=== PATIENT | male | born 1955 | race Hispanic/Latino ===

== ENCOUNTER → 2017-11-14 | Outpatient (CLI) | payer OTHER ==
--- NOTE | 2017-11-14 14:24 | Diagnostic Imaging Report ---
PROCEDURE: Frontal and lateral views of the chest. COMPARISON: None. INDICATIONS: PNEUMONIA FINDINGS: Lines/tubes: None. Lungs: The lungs are well inflated and clear. Minimal left basilar haziness. 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 Mild right heart border and duration. Pleura: There is no pleural effusion or pneumothorax. Heart and mediastinum: The heart and the mediastinum are normal. Bones: No acute bony abnormality. IMPRESSION: 1. Mild right heart border obscuration likely atelectasis. Underlying right middle lobe pneumonia cannot be entirely excluded. 2. Minimal left basilar haziness likely atelectasis. Dictated by: Franco Fatima M.D. on 11/14/2017 at 14:33 Electronically approved by: Franco Fatima M.D. on 11/14/2017 at 14:33
== END ==
LOC: RAD 13:20
PROVIDERS: ATTEND Internal Medicine
DX: J18.9 Pneumonia, unspecified organism (principal)
CPT/HCPCS: 71020

== ENCOUNTER → 2018-03-23 | Outpatient (CLI) | payer OTHER ==
--- NOTE | 2018-03-23 18:51 | Diagnostic Imaging Report ---
PROCEDURE: CT CHEST WITHOUT CONTRAST CT scan of the chest WITHOUT intravenous contrast, using standard protocol. TECHNIQUE: The chest was scanned utilizing a multidetector helical scanner from the apex to the level of the adrenal glands. No IV contrast was administered per physician's request. Coronal and sagittal multiplanar reformations were obtained. COMPARISON: [facility], , CHEST 2 VIEWS, 11/14/2017, 13:41. INDICATIONS: ABNORMAL CHEST X-RAY FINDINGS: Lack of intravenous contrast limits evaluation of parenchymal findings and vascular pathology. Lines/tubes: None. Lungs and pleura: Marked eventration of the right hemidiaphragm. Focal consolidation with air bronchograms in the right middle lobe adjacent to the diaphragmatic border (series 3, image 53, and sagittal image 45), likely representing chronic atelectasis and scarring. Similar changes are noted in the medial aspect of the right lower lobe (series 3, image 54). Tree in bud opacities in the anterior right lower lobe extending along the bronchovascular bundle to the pleural surface, with presence of thickened bronchial wall (for example, series 3, image 50). Linear opacities with associated mild bronchiectasis in the medial right middle lobe (series 3, image 57-59), consistent with scarring. Focal grouping of 3-4 mm subpleural nodules in the lateral aspect of the left lower lobe (series 3, image 80). The left lung is otherwise clear. No other areas of consolidation or other opacities. Airways are clear, without endobronchial lesions. Heart and mediastinum: The thyroid gland is normal. Heart size is normal. No pericardial effusion. Atherosclerotic calcification and aortic valves in coronary arteries and thoracic aortic arch. Aorta is non-aneurysmal. The main pulmonary artery is borderline enlarged, measuring 3.1 cm. Lymph nodes: No mediastinal, hilar, or axillary adenopathy. Partly calcified right lower paratracheal and left hilar lymph nodes (series 2, images 41, 38 and 57). Abdomen: Limited views of the upper abdomen show no abnormality within the visualized liver, spleen, pancreas. Bilateral renal atrophy. Mostly exophytic 1.9 x 1.8 cm fluid density simple cyst in the superior pole of the right kidney (series 2 image 131). 0.9 x 0.9 cm fluid density simple cyst in the superior pole of the left kidney (series 2, image 131). Colonic interposition. The adrenal glands are normal. Bones: No aggressive lytic lesions. Soft tissues are grossly unremarkable. IMPRESSION: 1. Marked eventration of the right hemidiaphragm, which results in focal consolidations in the right middle lobe and medial aspect of the right lower lobe consistent with chronic atelectasis and scarring. 2. Tree in bud opacities in the anterior right lower lobe, extending along the bronchovascular bundle to the pleural surface, consistent with endobronchial spread of infection/developing pneumonia. 3. Focal groups 3-4 mm subpleural nodules in the lateral left lower lobe, which may represent evolving inflammatory or infectious nodules. 4. Bilateral renal atrophy. 5. 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 Igor Trujillo M.D. Dictated by: Igor Trujillo M.D. on 03/23/2018 at 18:52 Electronically approved by: Igor Trujillo M.D. on 03/23/2018 at 18:52
== END ==
LOC: CT 09:40
PROVIDERS: ATTEND Internal Medicine
DX: R91.8 Other nonspecific abnormal finding of lung field (principal)
CPT/HCPCS: 71250

== ENCOUNTER → 2019-05-14 | Outpatient (CLI) | payer MEDICARE, OTHER ==
--- NOTE | 2019-05-14 10:58 | Diagnostic Imaging Report ---
EXAM: CT Chest WITHOUT intravenous contrast 05/14/2019 9:26 AM INDICATION: Follow-up of prior abnormal CT findings. COMPARISON: Chest CT of 03/23/2018 TECHNIQUE: Chest was scanned utilizing a multidetector helical scanner from the lung apex through the level of the adrenal glands without administration of IV contrast. Coronal and sagittal reformations were obtained. Routine protocol was performed. IV CONTRAST: None. RADIATION DOSE: Total DLP: 550.13 mGy*cm. Dose modulation, iterative reconstruction, and/or weight based adjustment of the mA/kV was utilized to reduce the radiation dose to as low as reasonably achievable. COMPLICATIONS: None FINDINGS: LINES/ TUBES: None. LUNGS AND AIRWAYS: The central airways are patent. Again seen are chronic architectural changes of the right lower lobe with decreased expansion, bronchial wall thickening, and scattered reticulonodular opacities, somewhat which are calcified. The previously seen mild tree-in-bud opacities at the peripheral left lower lobe also appear unchanged. No new focal consolidation. No new suspicious nodules. PLEURA: No pleural effusion or pneumothorax. Right diaphragmatic eventration with elevation of the right hemidiaphragm. HEART AND MEDIASTINUM: The thyroid gland is normal. No mediastinal, hilar or axillary lymphadenopathy. The heart is normal in size.. There is no pericardial effusion. Atherosclerotic calcifications involve the coronary arteries and thoracic aorta. UPPER ABDOMEN: Limited noncontrast images of the abdomen demonstrate no abnormality of the partially visualized liver, gallbladder, spleen, pancreas, or adrenal glands. Bilateral atrophic [place] kidneys. Right renal cyst measures up to 2.3 cm. Left renal cyst measuring 9 mm. Atherosclerotic calcifications involve the abdominal aorta. 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 BONES: No acute fracture or dislocation. Mild degenerative changes of the visualized spine. SOFT TISSUES: Unremarkable. IMPRESSION: Unchanged chronic scarring and underexpansion of the right lower lobe, likely related to prior infectious/granulomatous process. Mild tree-in-bud opacities in the peripheral left lower lobe also appear unchanged. No new focal consolidation. Atrophic [place] kidneys. Signed by: Sebas Myers MD on 05/14/2019 10:54 AM
== END ==
LOC: CT 09:20
PROVIDERS: ATTEND Internal Medicine Pulmonary Disease
DX: J98.4 Other disorders of lung (principal)
CPT/HCPCS: 71250

== ENCOUNTER → 2020-10-16 | Outpatient (CLI) | payer MEDICARE, OTHER | LOC: RAD 14:19 | PROVIDERS: ATTEND Urology | DX: N20.0 Calculus of kidney (principal) | CPT/HCPCS: 74018 ==

== ENCOUNTER → 2020-12-12 | Day surgery (SDC) | payer MEDICARE, OTHER ==
[2020-12-10 14:31] LABS: BASOPHILS # (AUTO) 0.1 (0.0-0.1); BASOPHILS % 0.8 % (0.0-1.0); EOSINOPHILS # (AUTO) 0.1 (0.0-0.4); EOSINOPHILS % 1.1 % (0.0-6.0); HEMATOCRIT 42.2 % (38.2-49.6); HEMOGLOBIN 14.1 g/dL (14.0-18.0); LYMPHOCYTES # (AUTO) 1.5 (1.0-3.2); MEAN CORPUSCULAR HEMOGLOBIN 30.9 pg (28-32); MEAN CORPUSCULAR HGB CONC 33.4 g/dL (31-35); MEAN CORPUSCULAR VOLUME 92.5 fL (81-99); MONOCYTES # (AUTO) 0.9 (0.2-0.8); MONOCYTES % 10.5 % (4.4-11.3); NEUTROPHILS % 70.1 % (38.7-80.0); PLATELET COUNT 211 x10e3/uL (140-360); RED BLOOD COUNT 4.56 x10e6/uL (4.3-5.7); RED CELL DISTRIBUTION WIDTH 12.9 % (11.7-14.4)
[2020-12-10 14:59] LABS: ALBUMIN 3.7 g/dL (3.5-5.0); ALBUMIN/GLOBULIN RATIO 1.4 (0.8-2.0); ANION GAP 13.1 mmol/L (8-16); CALCIUM 9.2 mg/dL (8.4-10.2); CREATININE, SERUM 2.2 mg/dL (0.72-1.25); POTASSIUM 4.1 mmol/L (3.5-5.1)
[~2020-12-12] MED LIST: B&O 60MG R/S 60 MG SUPP PR ONE; CEFTRIAXONE SOD 1 GM VIAL ONE; CLONIDINE HCL0.2 MG PO; CRESTOR10 MG PO; CYCLOSPORINE25 MG PO; FAMOTIDINE20 MG PO; HUMALOG100 UNIT/3 SC; HUMULIN R100 UNIT/2 INJ; IOPAMIDOL 300MG/ML 50ML INFUS..BTL IV ONE; LANTUS100 UNIT/1 SQ; MYCOPHENOLIC A180 MG PO; NIFEDIPINE ER30 M1 PO; PREDNISONE5 MG PO; SODIUM CHLORIDE 0.9% 50ML 50 ML ONE; VIT D3 PO
[2020-12-12 12:35] VITALS: BP 130/73
== END | disposition home or self-care (01) ==
LOC: OR 07:59
PROVIDERS: ATTEND Urology
DX: N20.1 Calculus of ureter (principal); N20.0 Calculus of kidney; E11.22 Type 2 diabetes mellitus with diabetic chronic kidney disease; I13.0 Hypertensive heart and chronic kidney disease with heart failure and stage 1 through stage 4 chronic kidney disease, or unspecified chronic kidney disease; N18.9 Chronic kidney disease, unspecified; I50.9 Heart failure, unspecified; N35.919 Unspecified urethral stricture, male, unspecified site; N40.0 Benign prostatic hyperplasia without lower urinary tract symptoms; N13.8 Other obstructive and reflux uropathy; N32.89 Other specified disorders of bladder; N47.1 Phimosis; Z94.0 Kidney transplant status; B19.10 Unspecified viral hepatitis B without hepatic coma; K21.9 Gastro-esophageal reflux disease without esophagitis; K27.9 Peptic ulcer, site unspecified, unspecified as acute or chronic, without hemorrhage or perforation; M47.9 Spondylosis, unspecified; Z88.1 Allergy status to other antibiotic agents; Z01.810 Encounter for preprocedural cardiovascular examination; Z01.812 Encounter for preprocedural laboratory examination; Z01.818 Encounter for other preprocedural examination; Z20.822 Contact with and (suspected) exposure to COVID-19; Z79.4 Long term (current) use of insulin; Z87.891 Personal history of nicotine dependence
CPT/HCPCS: 36415 ×2; 52330; 52332; 74018; 74420; 80053; 82948; 84550; 85025; 88300; 93005; C1758; C1769; C2617; J0696; Q9967; U0002

== ENCOUNTER → 2021-01-26 | Day surgery (SDC) | payer MEDICARE, OTHER ==
[2021-01-23 10:30] LABS: BASOPHILS % 0.6 % (0.0-1.0); EOSINOPHILS # (AUTO) 0.1 (0.0-0.4); EOSINOPHILS % 1.1 % (0.0-6.0); HEMATOCRIT 42.5 % (38.2-49.6); LYMPHOCYTES # (AUTO) 1.4 (1.0-3.2); LYMPHOCYTES % 22.2 % (18.0-39.1); MEAN CORPUSCULAR HEMOGLOBIN 30.7 pg (28-32); MEAN CORPUSCULAR HGB CONC 32.9 g/dL (31-35); MEAN CORPUSCULAR VOLUME 93.2 fL (81-99); MONOCYTES # (AUTO) 0.8 (0.2-0.8); NEUTROPHILS # (AUTO) 3.9 (2.1-6.9); NEUTROPHILS % 62.6 % (38.7-80.0); PLATELET COUNT 186 x10e3/uL (140-360); RED BLOOD COUNT 4.56 x10e6/uL (4.3-5.7); RED CELL DISTRIBUTION WIDTH 12.7 % (11.7-14.4)
[2021-01-23 10:53] LABS: ANION GAP 15.9 mmol/L (8-16); CREATININE, SERUM 2.25 mg/dL (0.72-1.25); POTASSIUM 3.9 mmol/L (3.5-5.1)
[~2021-01-26] MED LIST changes: +BUPIVACAINE 0.25% 30ML SDV ONE; +CEFAZOLIN SOD 1 GM/NS 50ML 50 ML IV ONE; -CEFTRIAXONE SOD 1 GM VIAL ONE; +CEPHALEXIN500 MG PO; +EPHEDRINE SULFATE INJ 50 MG/ML VIAL ONE; +FENTANYL CITRATE/PF 100MCG/2 ML INJ ONE; +GENTAMICIN 80MG/NS 100 ML 100 ML IV ONE; +LIDOCAINE HCL 2% LOCAL INJ 5 ML SDV VIAL INJ ONE; +MEPERIDINE HCL INJ 25 MG/ML VIAL ONE; +MIDAZOLAM HCL 2 MG/2 ML VIAL ONE; +NEOSTIGMINE 1 MG/ML 10ML VIAL ONE; +ONDANSETRON HCL INJ 2MG/ML 2ML 2 MG/ML VIAL ONE; +PROPOFOL IV EMULSION 10 MG/ML 20 ML VIAL ONE; +SEVOFLURANE INHAL SOLN 250 ML PEN BTL ONE; -SODIUM CHLORIDE 0.9% 50ML 50 ML ONE
[2021-01-26 12:02] VITALS: BP 157/66
== END | disposition home or self-care (01) ==
LOC: OR 07:34
PROVIDERS: ATTEND Urology
DX: N47.1 Phimosis (principal); N20.0 Calculus of kidney; N47.7 Other inflammatory diseases of prepuce; Z46.6 Encounter for fitting and adjustment of urinary device; N35.919 Unspecified urethral stricture, male, unspecified site; E11.22 Type 2 diabetes mellitus with diabetic chronic kidney disease; I12.9 Hypertensive chronic kidney disease with stage 1 through stage 4 chronic kidney disease, or unspecified chronic kidney disease; N18.9 Chronic kidney disease, unspecified; N40.1 Benign prostatic hyperplasia with lower urinary tract symptoms; N13.8 Other obstructive and reflux uropathy; R35.1 Nocturia; R80.9 Proteinuria, unspecified; E66.9 Obesity, unspecified; N28.1 Cyst of kidney, acquired; R81 Glycosuria; N28.89 Other specified disorders of kidney and ureter; B19.10 Unspecified viral hepatitis B without hepatic coma; R00.1 Bradycardia, unspecified; Z88.1 Allergy status to other antibiotic agents; Z01.812 Encounter for preprocedural laboratory examination; Z01.818 Encounter for other preprocedural examination; Z20.822 Contact with and (suspected) exposure to COVID-19; Z98.890 Other specified postprocedural states; Z79.4 Long term (current) use of insulin; Z84.1 Family history of disorders of kidney and ureter
CPT/HCPCS: 36415 ×2; 52352; 54161; 74018; 74420; 80048; 82948; 85025; 88300; 88305; C1769; J0690; J1580; J2001; J2175; J2250; J2405; J2704; J2710; J3010; Q9967; U0002; 88304

== ENCOUNTER → 2021-02-27 | Outpatient (CLI) | payer MEDICARE, OTHER ==
[~2021-02-27] MED LIST changes: -B&O 60MG R/S 60 MG SUPP PR ONE; -BUPIVACAINE 0.25% 30ML SDV ONE; -CEFAZOLIN SOD 1 GM/NS 50ML 50 ML IV ONE; -EPHEDRINE SULFATE INJ 50 MG/ML VIAL ONE; -FENTANYL CITRATE/PF 100MCG/2 ML INJ ONE; -GENTAMICIN 80MG/NS 100 ML 100 ML IV ONE; -IOPAMIDOL 300MG/ML 50ML INFUS..BTL IV ONE; -LIDOCAINE HCL 2% LOCAL INJ 5 ML SDV VIAL INJ ONE; -MEPERIDINE HCL INJ 25 MG/ML VIAL ONE; -MIDAZOLAM HCL 2 MG/2 ML VIAL ONE; -NEOSTIGMINE 1 MG/ML 10ML VIAL ONE; -ONDANSETRON HCL INJ 2MG/ML 2ML 2 MG/ML VIAL ONE; -PROPOFOL IV EMULSION 10 MG/ML 20 ML VIAL ONE; -SEVOFLURANE INHAL SOLN 250 ML PEN BTL ONE
== END ==
LOC: RAD 12:32
PROVIDERS: ATTEND Internal Medicine
DX: J40 Bronchitis, not specified as acute or chronic (principal)
CPT/HCPCS: 71046

== ENCOUNTER 2021-11-05 13:54 | Inpatient (IN) | payer MEDICARE, OTHER ==
[~2021-11-05] VITALS: Ht 162.6 cm; Wt 78.6 kg
[2021-11-05] MEDS ORDERED: SODIUM CHLORIDE 0.9% 1000ML 1,000 ML IV SCH (14:15)
[2021-11-05] MEDS ORDERED: ACETAMINOPHEN 325 MG TAB PO ONE (14:15)
[2021-11-05 15:04] LABS: BASOPHILS % 0.1 % (0.0-1.0); HEMOGLOBIN 14.4 g/dL (14.0-18.0); LYMPHOCYTES # (AUTO) 0.6 (1.0-3.2); LYMPHOCYTES % 5.8 % (18.0-39.1); MEAN CORPUSCULAR HEMOGLOBIN 30.4 pg (28-32); MEAN CORPUSCULAR HGB CONC 34.3 g/dL (31-35); MEAN CORPUSCULAR VOLUME 88.6 fL (81-99); MONOCYTES % 9.7 % (4.4-11.3); NEUTROPHILS # (AUTO) 8.4 (2.1-6.9); PLATELET COUNT 253 x10e3/uL (140-360); RED BLOOD COUNT 4.74 x10e6/uL (4.3-5.7); RED CELL DISTRIBUTION WIDTH 12.3 % (11.7-14.4)
[2021-11-05 15:30] LABS: ALBUMIN 2.8 g/dL (3.5-5.0); ALBUMIN/GLOBULIN RATIO 0.7 (0.8-2.0); ANION GAP 21.6 mmol/L (8-16); CALCIUM 9.5 mg/dL (8.4-10.2); CREATININE, SERUM 4.12 mg/dL (0.72-1.25); POTASSIUM 3.6 mmol/L (3.5-5.1)
[2021-11-05 16:05] LABS: COLOR,URINE STRAW (YELLOW)
[2021-11-05 16:06] LABS: CLARITY,URINE SL CLOUDY (CLEAR); KETONES,URINE NEGATIVE (NEGATIVE); LEUKOCYTE ESTERASE ,URINE NEGATIVE (NEGATIVE); NITRITE,URINE NEGATIVE (NEGATIVE); PROTEIN,URINE DIPSTICK >=300 (NEGATIVE); URINE UROBILINOGEN 0.2 mg/dL (0.2 - 1)
[2021-11-05 16:16] LABS: BACTERIA,URINE MODERATE /HPF
[2021-11-05 16:17] LABS: AMORPHOUS SEDIMENT,URINE MANY (FEW); EPITHELIAL CELLS,URINE FEW /LPF
[2021-11-05] MEDS ORDERED: FLOMAX0.4 MG PO (16:18)
[2021-11-05] MEDS ORDERED: ZYRTEC10 M3 PO (16:18)
[2021-11-05] MEDS ORDERED: MYCOPHENOLIC A180 MG PO (16:18)
[2021-11-05] MEDS ORDERED: BUMETANIDE0.5 MG PO (16:18)
[2021-11-05] MEDS ORDERED: PEPCID20 MG PO (16:18)
[2021-11-05] MEDS ORDERED: FINASTERIDE5 MG PO (16:18)
[2021-11-05] MEDS ORDERED: SODIUM BICARBO650 MG PO (16:18)
[2021-11-05] MEDS: SODIUM CHLORIDE 0.9% 1000ML 1,000 ML IV SCH (16:25)
[2021-11-05] MEDS ORDERED: LANTUS 3ML100 UNITS/ SC (16:28)
[2021-11-05] MEDS ORDERED: HUMALOG100 UNIT/1 SC (16:28)
[2021-11-05 20:00] VITALS: BP 148/68
[2021-11-05 22:54] VITALS: BP 148/68
[2021-11-06] VITALS (7 sets, daily range): BP systolic 146–171; BP diastolic 71–81
[2021-11-06] MEDS: SODIUM CHLORIDE 0.9% 1000ML 1,000 ML IV SCH ×3 (00:28→16:29)
[2021-11-06] MEDS: CYCLOSPORINE 25 MG CAP PO SCH ×2 (01:36→16:29)
[2021-11-06 05:09] LABS: BASOPHILS % 0.1 % (0.0-1.0); HEMATOCRIT 37.8 % (38.2-49.6); HEMOGLOBIN 13.1 g/dL (14.0-18.0); LYMPHOCYTES # (AUTO) 0.4 (1.0-3.2); LYMPHOCYTES % 4.9 % (18.0-39.1); MEAN CORPUSCULAR HEMOGLOBIN 30.1 pg (28-32); MEAN CORPUSCULAR HGB CONC 34.7 g/dL (31-35); MEAN CORPUSCULAR VOLUME 86.9 fL (81-99); MONOCYTES # (AUTO) 0.7 (0.2-0.8); MONOCYTES % 7.7 % (4.4-11.3); NEUTROPHILS # (AUTO) 7.3 (2.1-6.9); NEUTROPHILS % 86.9 % (38.7-80.0); PLATELET COUNT 236 x10e3/uL (140-360); RED BLOOD COUNT 4.35 x10e6/uL (4.3-5.7); RED CELL DISTRIBUTION WIDTH 12.1 % (11.7-14.4)
[2021-11-06 05:38] LABS: ANION GAP 18.1 mmol/L (8-16); CALCIUM 8.7 mg/dL (8.4-10.2); CREATININE, SERUM 3.81 mg/dL (0.72-1.25); POTASSIUM 4.1 mmol/L (3.5-5.1)
[2021-11-06] MEDS: NON-FORMULARY MEDICATION (Mycophenolate Sodium (Mycophenolic Acid) 180 MG) PO SCH ×2 (09:00→16:29)
[2021-11-06] MEDS ORDERED: BUMETANIDE 1 MG TAB PO SCH (09:00)
[2021-11-06] MEDS ORDERED: PREDNISONE 5 MG TAB PO SCH (09:00)
[2021-11-06] MEDS: SIMVASTATIN 20 MG TAB PO SCH (09:17)
[2021-11-06] MEDS: FAMOTIDINE 20 MG TAB PO SCH (09:17)
[2021-11-06] MEDS: SODIUM BICARBONATE 650 MG TAB PO SCH ×2 (09:17→16:30)
[2021-11-06] MEDS: NIFEDIPINE CR 30 MG TAB PO SCH ×2 (09:17→16:30)
[2021-11-06] MEDS: FINASTERIDE 5 MG TAB PO SCH (09:17)
[2021-11-06] MEDS: LORATADINE 10 MG TAB PO SCH (09:17)
[2021-11-06] MEDS: INSULIN GLARGINE 100 UNITS/ML VIAL SC SCH ×2 (09:18→21:45)
[2021-11-06] MEDS: CLONIDINE HCL 0.3 MG TAB PO SCH ×3 (09:18→22:02)
[2021-11-06] MEDS ORDERED: CEFTRIAXONE 1 GM in SODIUM CHLORIDE 0.9% 50ML 50 ML IV SCH (09:30)
[2021-11-06] MEDS ORDERED: CEFTRIAXONE 1 GM VIAL ONE (09:43)
[2021-11-06] MEDS: DEXAMETHASONE SOD PHOS 10 MG/1 ML VIAL IV SCH (16:29)
[2021-11-06] MEDS ORDERED: ENOXAPARIN SOD INJ 40 MG/0.4 ML SYR SC SCH (17:00)
[2021-11-06] MEDS: PIPERACILLIN/TAZOBACTAM 2.25 GM in SODIUM CHLORIDE 0.9% 50ML 50 ML IV SCH (21:45)
[2021-11-06] MEDS: TAMSULOSIN HCL 0.4 MG CAP PO SCH (21:45)
[2021-11-06] MEDS: ALBUTEROL SULFATE HFA 8GM INHALATION AEROSOL INH SCH (23:44)
[2021-11-07] VITALS (18 sets, daily range): BP systolic 103–168; BP diastolic 65–87
[2021-11-07] MEDS: ALBUTEROL SULFATE HFA 8GM INHALATION AEROSOL INH SCH ×6 (03:05→22:00)
[2021-11-07] MEDS: SODIUM CHLORIDE 0.9% 1000ML 1,000 ML IV SCH (06:09)
[2021-11-07 06:45] LABS: BASOPHILS % 0.1 % (0.0-1.0); HEMATOCRIT 38.7 % (38.2-49.6); HEMOGLOBIN 12.9 g/dL (14.0-18.0); LYMPHOCYTES # (AUTO) 0.2 (1.0-3.2); LYMPHOCYTES % 2.2 % (18.0-39.1); MEAN CORPUSCULAR HEMOGLOBIN 30.1 pg (28-32); MEAN CORPUSCULAR HGB CONC 33.3 g/dL (31-35); MEAN CORPUSCULAR VOLUME 90.2 fL (81-99); MONOCYTES # (AUTO) 0.3 (0.2-0.8); MONOCYTES % 3.8 % (4.4-11.3); NEUTROPHILS # (AUTO) 8.3 (2.1-6.9); NEUTROPHILS % 93.5 % (38.7-80.0); PLATELET COUNT 296 x10e3/uL (140-360); RED BLOOD COUNT 4.29 x10e6/uL (4.3-5.7); RED CELL DISTRIBUTION WIDTH 12.6 % (11.7-14.4)
[2021-11-07 07:07] LABS: ALBUMIN 2.5 g/dL (3.5-5.0); ALBUMIN/GLOBULIN RATIO 0.6 (0.8-2.0); ANION GAP 22.4 mmol/L (8-16); CALCIUM 9.7 mg/dL (8.4-10.2); CREATININE, SERUM 4.46 mg/dL (0.72-1.25); POTASSIUM 4.4 mmol/L (3.5-5.1)
[2021-11-07] MEDS: NON-FORMULARY MEDICATION (Mycophenolate Sodium (Mycophenolic Acid) 180 MG) PO SCH ×2 (07:42→16:16)
[2021-11-07] MEDS: FAMOTIDINE 20 MG TAB PO SCH (08:06)
[2021-11-07] MEDS: FINASTERIDE 5 MG TAB PO SCH (08:06)
[2021-11-07] MEDS: CYCLOSPORINE 25 MG CAP PO SCH ×2 (08:06→16:11)
[2021-11-07] MEDS: PIPERACILLIN/TAZOBACTAM 2.25 GM in SODIUM CHLORIDE 0.9% 50ML 50 ML IV SCH ×2 (08:06→22:06)
[2021-11-07] MEDS: NIFEDIPINE CR 30 MG TAB PO SCH ×2 (08:06→16:11)
[2021-11-07] MEDS: CLONIDINE HCL 0.3 MG TAB PO SCH ×3 (08:06→22:06)
[2021-11-07] MEDS: SIMVASTATIN 20 MG TAB PO SCH (08:06)
[2021-11-07] MEDS: DEXAMETHASONE SOD PHOS 10 MG/1 ML VIAL IV SCH (08:06)
[2021-11-07] MEDS: SODIUM BICARBONATE 650 MG TAB PO SCH (08:06)
[2021-11-07] MEDS: LORATADINE 10 MG TAB PO SCH (08:06)
[2021-11-07] MEDS: INSULIN GLARGINE 100 UNITS/ML VIAL SC SCH (08:08)
[2021-11-07] MEDS ORDERED: DEXTROSE 50% SYRINGE 50 ML IV PRN (12:15)
[2021-11-07] MEDS ORDERED: INSULIN REGULAR, HUMAN 3ML VL 100 UNIT in SODIUM CHLORIDE 0.9% 100 ML 100 ML IV SCH ×2 (12:15)
[2021-11-07] MEDS ORDERED: INSULIN REGULAR, HUMAN 100 UNIT/1 ML IV NR (12:15)
[2021-11-07] MEDS: SODIUM BICARBONATE 8.4% 150 ML in DEXTROSE 5% 1,000 ML IV SCH (13:43)
[2021-11-07] MEDS: LINEZOLID 600 MG/D5W 300ML 300 ML IV SCH ×2 (14:15→23:57)
[2021-11-07] MEDS: ATOVAQUONE 750 MG/5 ML SUSP PO SCH (16:11)
[2021-11-07] MEDS ORDERED: MANNITOL 25% 12.5GM/50 ML VIAL IV PRN (17:30)
[2021-11-07] MEDS ORDERED: SODIUM CHLORIDE 0.9% 1000ML 2,000 ML IV PRN (17:30)
[2021-11-07] MEDS ORDERED: SODIUM CHLORIDE 0.9% 250ML 500 ML IV PRN (17:30)
[2021-11-07] MEDS ORDERED: HEPARIN SOD (PORCINE) 1000 UNIT/ML SDV IV PRN (17:30)
[2021-11-07] MEDS: TAMSULOSIN HCL 0.4 MG CAP PO SCH (22:06)
[2021-11-08] VITALS (23 sets, daily range): BP systolic 111–149; BP diastolic 65–82
[2021-11-08] MEDS: ALBUTEROL SULFATE HFA 8GM INHALATION AEROSOL INH SCH ×6 (02:02→22:05)
[2021-11-08] MEDS: SODIUM BICARBONATE 8.4% 150 ML in DEXTROSE 5% 1,000 ML IV SCH (03:10)
[2021-11-08 06:25] LABS: BASOPHILS % 0.1 % (0.0-1.0); HEMATOCRIT 31.9 % (38.2-49.6); HEMOGLOBIN 11.1 g/dL (14.0-18.0); LYMPHOCYTES # (AUTO) 0.1 (1.0-3.2); LYMPHOCYTES % 1.2 % (18.0-39.1); MEAN CORPUSCULAR HEMOGLOBIN 30.2 pg (28-32); MEAN CORPUSCULAR HGB CONC 34.8 g/dL (31-35); MEAN CORPUSCULAR VOLUME 86.9 fL (81-99); MONOCYTES # (AUTO) 0.8 (0.2-0.8); MONOCYTES % 7.3 % (4.4-11.3); NEUTROPHILS # (AUTO) 10.2 (2.1-6.9); NEUTROPHILS % 90.8 % (38.7-80.0); PLATELET COUNT 204 x10e3/uL (140-360); RED BLOOD COUNT 3.67 x10e6/uL (4.3-5.7); RED CELL DISTRIBUTION WIDTH 12.4 % (11.7-14.4)
[2021-11-08 06:50] LABS: ALBUMIN 2.2 g/dL (3.5-5.0); ALBUMIN/GLOBULIN RATIO 0.6 (0.8-2.0); ANION GAP 18.8 mmol/L (8-16); CREATININE, SERUM 4.23 mg/dL (0.72-1.25); POTASSIUM 3.8 mmol/L (3.5-5.1)
[2021-11-08] MEDS: CLONIDINE HCL 0.3 MG TAB PO SCH ×3 (08:26→21:15)
[2021-11-08] MEDS: PIPERACILLIN/TAZOBACTAM 2.25 GM in SODIUM CHLORIDE 0.9% 50ML 50 ML IV SCH ×2 (08:26→21:15)
[2021-11-08] MEDS: DEXAMETHASONE SOD PHOS 10 MG/1 ML VIAL IV SCH (08:26)
[2021-11-08] MEDS: CYCLOSPORINE 25 MG CAP PO SCH ×2 (08:27→17:30)
[2021-11-08] MEDS: FINASTERIDE 5 MG TAB PO SCH (08:29)
[2021-11-08] MEDS: SIMVASTATIN 20 MG TAB PO SCH (08:29)
[2021-11-08] MEDS: NIFEDIPINE CR 30 MG TAB PO SCH ×2 (08:29→17:30)
[2021-11-08] MEDS: FAMOTIDINE 20 MG TAB PO SCH (08:29)
[2021-11-08] MEDS: NON-FORMULARY MEDICATION (Mycophenolate Sodium (Mycophenolic Acid) 180 MG) PO SCH ×3 (08:30→17:27)
[2021-11-08] MEDS: LINEZOLID 600 MG/D5W 300ML 300 ML IV SCH (11:15)
[2021-11-08] MEDS: ATOVAQUONE 750 MG/5 ML SUSP PO SCH (11:28)
[2021-11-08] MEDS: GUAIFENESIN/CODEINE 5 ML LIQD PO PRN ×2 (16:00→22:13)
[2021-11-08] MEDS: ENOXAPARIN 30 MG/0.3 ML SYR SC SCH (17:30)
[2021-11-08] MEDS: SODIUM BICARBONATE 650 MG TAB PO SCH (17:30)
[2021-11-08] MEDS: TAMSULOSIN HCL 0.4 MG CAP PO SCH (21:15)
[2021-11-09] VITALS (26 sets, daily range): BP systolic 122–167; BP diastolic 67–85
[2021-11-09] MEDS: LINEZOLID 600 MG/D5W 300ML 300 ML IV SCH ×2 (00:07→11:17)
[2021-11-09] MEDS: ALBUTEROL SULFATE HFA 8GM INHALATION AEROSOL INH SCH ×6 (02:40→22:00)
[2021-11-09 06:17] LABS: BASOPHILS % 0.1 % (0.0-1.0); HEMATOCRIT 33.7 % (38.2-49.6); HEMOGLOBIN 11.2 g/dL (14.0-18.0); LYMPHOCYTES # (AUTO) 0.3 (1.0-3.2); LYMPHOCYTES % 2.1 % (18.0-39.1); MEAN CORPUSCULAR HEMOGLOBIN 29.9 pg (28-32); MEAN CORPUSCULAR HGB CONC 33.2 g/dL (31-35); MEAN CORPUSCULAR VOLUME 89.9 fL (81-99); MONOCYTES # (AUTO) 0.8 (0.2-0.8); MONOCYTES % 6.3 % (4.4-11.3); NEUTROPHILS # (AUTO) 10.9 (2.1-6.9); NEUTROPHILS % 90.7 % (38.7-80.0); PLATELET COUNT 189 x10e3/uL (140-360); RED BLOOD COUNT 3.75 x10e6/uL (4.3-5.7); RED CELL DISTRIBUTION WIDTH 12.7 % (11.7-14.4)
[2021-11-09 07:02] LABS: ALBUMIN 2.1 g/dL (3.5-5.0); ALBUMIN/GLOBULIN RATIO 0.6 (0.8-2.0); ANION GAP 20.1 mmol/L (8-16); CREATININE, SERUM 5.15 mg/dL (0.72-1.25); POTASSIUM 4.1 mmol/L (3.5-5.1)
[2021-11-09] MEDS: DEXAMETHASONE SOD PHOS 10 MG/1 ML VIAL IV SCH (08:25)
[2021-11-09] MEDS: FINASTERIDE 5 MG TAB PO SCH (08:26)
[2021-11-09] MEDS: NON-FORMULARY MEDICATION (Mycophenolate Sodium (Mycophenolic Acid) 180 MG) PO SCH ×2 (08:26→16:24)
[2021-11-09] MEDS: FAMOTIDINE 20 MG TAB PO SCH (08:26)
[2021-11-09] MEDS: NIFEDIPINE CR 30 MG TAB PO SCH ×2 (08:26→16:24)
[2021-11-09] MEDS: CYCLOSPORINE 25 MG CAP PO SCH ×2 (08:26→16:24)
[2021-11-09] MEDS: CLONIDINE HCL 0.3 MG TAB PO SCH ×3 (08:26→20:15)
[2021-11-09] MEDS: PIPERACILLIN/TAZOBACTAM 2.25 GM in SODIUM CHLORIDE 0.9% 50ML 50 ML IV SCH ×2 (08:26→20:15)
[2021-11-09] MEDS: SODIUM BICARBONATE 650 MG TAB PO SCH ×2 (08:26→16:24)
[2021-11-09] MEDS: SIMVASTATIN 20 MG TAB PO SCH (08:26)
[2021-11-09] MEDS: ATOVAQUONE 750 MG/5 ML SUSP PO SCH (08:30)
[2021-11-09] MEDS: GUAIFENESIN/CODEINE 5 ML LIQD PO PRN ×2 (08:30→20:15)
[2021-11-09] MEDS ORDERED: DEXTROSE 50% SYRINGE 50 ML IV PRN (10:30)
[2021-11-09] MEDS: INSULIN LISPRO 100 UNIT/1 ML 3ML VIAL SQ SCH ×3 (11:16→21:49)
[2021-11-09] MEDS: ENOXAPARIN 30 MG/0.3 ML SYR SC SCH (16:24)
[2021-11-09] MEDS: TAMSULOSIN HCL 0.4 MG CAP PO SCH (20:15)
[2021-11-10] VITALS (18 sets, daily range): BP systolic 100–168; BP diastolic 64–85
[2021-11-10] MEDS: LINEZOLID 600 MG/D5W 300ML 300 ML IV SCH ×2 (00:13→13:01)
[2021-11-10] MEDS: ALBUTEROL SULFATE HFA 8GM INHALATION AEROSOL INH SCH ×6 (02:06→22:00)
[2021-11-10] MEDS: GUAIFENESIN/CODEINE 5 ML LIQD PO PRN ×2 (04:25→13:01)
[2021-11-10 05:15] LABS: HEMATOCRIT 35.2 % (38.2-49.6); HEMOGLOBIN 11.8 g/dL (14.0-18.0); MEAN CORPUSCULAR HEMOGLOBIN 30.5 pg (28-32); MEAN CORPUSCULAR HGB CONC 33.5 g/dL (31-35); PLATELET COUNT 234 x10e3/uL (140-360); RED BLOOD COUNT 3.87 x10e6/uL (4.3-5.7); RED CELL DISTRIBUTION WIDTH 12.8 % (11.7-14.4)
[2021-11-10 05:33] LABS: ALBUMIN/GLOBULIN RATIO 0.5 (0.8-2.0); ANION GAP 18.5 mmol/L (8-16); CALCIUM 8.9 mg/dL (8.4-10.2); CREATININE, SERUM 4.95 mg/dL (0.72-1.25); POTASSIUM 4.5 mmol/L (3.5-5.1)
[2021-11-10] MEDS ORDERED: DEXMEDETOMIDINE 400MCG/NS100ML 100 ML IV ONE (07:20)
[2021-11-10] MEDS: INSULIN LISPRO 100 UNIT/1 ML 3ML VIAL SQ SCH ×4 (07:30→21:00)
[2021-11-10] MEDS: DEXAMETHASONE SOD PHOS 10 MG/1 ML VIAL IV SCH (09:39)
[2021-11-10] MEDS: PIPERACILLIN/TAZOBACTAM 2.25 GM in SODIUM CHLORIDE 0.9% 50ML 50 ML IV SCH ×2 (09:40→21:11)
[2021-11-10] MEDS: CYCLOSPORINE 25 MG CAP PO SCH ×2 (09:43→17:08)
[2021-11-10] MEDS: FAMOTIDINE 20 MG TAB PO SCH (09:43)
[2021-11-10] MEDS: SODIUM BICARBONATE 650 MG TAB PO SCH ×2 (09:43→17:08)
[2021-11-10] MEDS: NIFEDIPINE CR 30 MG TAB PO SCH ×2 (09:43→17:08)
[2021-11-10] MEDS: SIMVASTATIN 20 MG TAB PO SCH (09:43)
[2021-11-10] MEDS: NON-FORMULARY MEDICATION (Mycophenolate Sodium (Mycophenolic Acid) 180 MG) PO SCH ×2 (09:46→17:08)
[2021-11-10] MEDS: ATOVAQUONE 750 MG/5 ML SUSP PO SCH (09:54)
[2021-11-10] MEDS: FINASTERIDE 5 MG TAB PO SCH (09:54)
[2021-11-10] MEDS: CLONIDINE HCL 0.3 MG TAB PO SCH ×3 (12:59→21:11)
[2021-11-10 13:06] LABS: LYMPHOCYTES % (MANUAL) 1 % (19-48); MONOCYTES % (MANUAL) 3 % (3.4-9.0); MYELOCYTES % (MANUAL) 1 % (0-0); NEUTROPHILS % (MANUAL) 95 % (40-74); PLATELET ESTIMATE ADEQUATE; PLATELET MORPHOLOGY COMMENT NORMAL; RBC MORPHOLOGY COMMENT NORMAL
[2021-11-10] MEDS: ENOXAPARIN 30 MG/0.3 ML SYR SC SCH (17:08)
[2021-11-10] MEDS: TAMSULOSIN HCL 0.4 MG CAP PO SCH (21:11)
[2021-11-11] VITALS (24 sets, daily range): BP systolic 89–139; BP diastolic 62–87
[2021-11-11] MEDS: LINEZOLID 600 MG/D5W 300ML 300 ML IV SCH ×2 (00:13→11:20)
[2021-11-11] MEDS: ALBUTEROL SULFATE HFA 8GM INHALATION AEROSOL INH SCH ×4 (02:08→17:35)
[2021-11-11 05:28] LABS: BASOPHILS % 0.2 % (0.0-1.0); HEMATOCRIT 35.6 % (38.2-49.6); HEMOGLOBIN 11.7 g/dL (14.0-18.0); LYMPHOCYTES # (AUTO) 0.2 (1.0-3.2); LYMPHOCYTES % 1.7 % (18.0-39.1); MEAN CORPUSCULAR HEMOGLOBIN 29.8 pg (28-32); MEAN CORPUSCULAR HGB CONC 32.9 g/dL (31-35); MEAN CORPUSCULAR VOLUME 90.8 fL (81-99); MONOCYTES # (AUTO) 0.3 (0.2-0.8); MONOCYTES % 3.1 % (4.4-11.3); NEUTROPHILS # (AUTO) 9.4 (2.1-6.9); NEUTROPHILS % 93.7 % (38.7-80.0); PLATELET COUNT 150 x10e3/uL (140-360); RED BLOOD COUNT 3.92 x10e6/uL (4.3-5.7); RED CELL DISTRIBUTION WIDTH 12.6 % (11.7-14.4)
[2021-11-11 05:43] LABS: ALBUMIN 1.8 g/dL (3.5-5.0); ALBUMIN/GLOBULIN RATIO 0.5 (0.8-2.0); CALCIUM 9.4 mg/dL (8.4-10.2); POTASSIUM 4.6 mmol/L (3.5-5.1)
[2021-11-11 05:58] LABS: ANION GAP 21.6 mmol/L (8-16); CREATININE, SERUM 6.54 mg/dL (0.72-1.25)
[2021-11-11] MEDS: INSULIN LISPRO 100 UNIT/1 ML 3ML VIAL SQ SCH ×4 (07:30→21:00)
[2021-11-11] MEDS: PIPERACILLIN/TAZOBACTAM 2.25 GM in SODIUM CHLORIDE 0.9% 50ML 50 ML IV SCH ×2 (08:00→23:57)
[2021-11-11] MEDS: NON-FORMULARY MEDICATION (Mycophenolate Sodium (Mycophenolic Acid) 180 MG) PO SCH ×2 (08:00→16:15)
[2021-11-11] MEDS: DEXAMETHASONE SOD PHOS 10 MG/1 ML VIAL IV SCH (08:00)
[2021-11-11] MEDS: ATOVAQUONE 750 MG/5 ML SUSP PO SCH (08:01)
[2021-11-11] MEDS: CYCLOSPORINE 25 MG CAP PO SCH ×2 (08:01→16:15)
[2021-11-11] MEDS: CLONIDINE HCL 0.3 MG TAB PO SCH ×3 (08:01→21:00)
[2021-11-11] MEDS: FAMOTIDINE 20 MG TAB PO SCH (08:01)
[2021-11-11] MEDS: NIFEDIPINE CR 30 MG TAB PO SCH ×2 (08:02→16:15)
[2021-11-11] MEDS: FINASTERIDE 5 MG TAB PO SCH (08:02)
[2021-11-11] MEDS: SIMVASTATIN 20 MG TAB PO SCH (08:02)
[2021-11-11] MEDS: SODIUM BICARBONATE 650 MG TAB PO SCH ×2 (08:02→16:15)
[2021-11-11] MEDS: DEXMEDETOMIDINE 400MCG/NS100ML 100 ML IV PRN (08:38)
[2021-11-11] MEDS: ENOXAPARIN 30 MG/0.3 ML SYR SC SCH (16:15)
[2021-11-11] MEDS ORDERED: ALBUMIN 25% 25GM 100ML 200 ML ONE (20:38)
[2021-11-11] MEDS: TAMSULOSIN HCL 0.4 MG CAP PO SCH (23:58)
[2021-11-12] VITALS (24 sets, daily range): BP systolic 107–148; BP diastolic 62–84
[2021-11-12] MEDS ORDERED: SODIUM CHLORIDE 0.9% 250ML 250 ML ONE (00:13)
[2021-11-12] MEDS: LINEZOLID 600 MG/D5W 300ML 300 ML IV SCH (01:10)
[2021-11-12] MEDS: ALBUTEROL SULFATE HFA 8GM INHALATION AEROSOL INH SCH ×5 (06:00→22:00)
[2021-11-12 06:40] LABS: BASOPHILS % 0.1 % (0.0-1.0); HEMATOCRIT 32.7 % (38.2-49.6); HEMOGLOBIN 10.9 g/dL (14.0-18.0); LYMPHOCYTES # (AUTO) 0.1 (1.0-3.2); LYMPHOCYTES % 1.2 % (18.0-39.1); MEAN CORPUSCULAR HEMOGLOBIN 29.8 pg (28-32); MEAN CORPUSCULAR HGB CONC 33.3 g/dL (31-35); MEAN CORPUSCULAR VOLUME 89.3 fL (81-99); MONOCYTES # (AUTO) 0.3 (0.2-0.8); NEUTROPHILS # (AUTO) 10.8 (2.1-6.9); PLATELET COUNT 144 x10e3/uL (140-360); RED BLOOD COUNT 3.66 x10e6/uL (4.3-5.7); RED CELL DISTRIBUTION WIDTH 12.3 % (11.7-14.4)
[2021-11-12 07:08] LABS: ALBUMIN 2.1 g/dL (3.5-5.0); ALBUMIN/GLOBULIN RATIO 0.5 (0.8-2.0); ANION GAP 18.6 mmol/L (8-16); CALCIUM 9.6 mg/dL (8.4-10.2); CREATININE, SERUM 4.52 mg/dL (0.72-1.25); POTASSIUM 4.6 mmol/L (3.5-5.1)
[2021-11-12] MEDS: PIPERACILLIN/TAZOBACTAM 2.25 GM in SODIUM CHLORIDE 0.9% 50ML 50 ML IV SCH (08:20)
[2021-11-12] MEDS: CYCLOSPORINE 25 MG CAP PO SCH ×3 (08:20→16:44)
[2021-11-12] MEDS: ATOVAQUONE 750 MG/5 ML SUSP PO SCH ×2 (08:20→09:00)
[2021-11-12] MEDS: DEXAMETHASONE SOD PHOS 10 MG/1 ML VIAL IV SCH (08:20)
[2021-11-12] MEDS: FINASTERIDE 5 MG TAB PO SCH ×2 (08:20→09:00)
[2021-11-12] MEDS: SIMVASTATIN 20 MG TAB PO SCH ×2 (08:21→09:00)
[2021-11-12] MEDS: SODIUM BICARBONATE 650 MG TAB PO SCH ×3 (08:21→16:45)
[2021-11-12] MEDS: FAMOTIDINE 20 MG TAB PO SCH ×2 (08:21→09:00)
[2021-11-12] MEDS: INSULIN LISPRO 100 UNIT/1 ML 3ML VIAL SQ SCH ×4 (08:29→21:46)
[2021-11-12] MEDS: NON-FORMULARY MEDICATION (Mycophenolate Sodium (Mycophenolic Acid) 180 MG) PO SCH ×3 (08:30→16:44)
[2021-11-12] MEDS: NIFEDIPINE CR 30 MG TAB PO SCH ×3 (08:30→16:45)
[2021-11-12] MEDS: CLONIDINE HCL 0.3 MG TAB PO SCH ×4 (08:31→21:00)
[2021-11-12] MEDS: DEXMEDETOMIDINE 400MCG/NS100ML 100 ML IV PRN ×3 (10:21→23:24)
[2021-11-12] MEDS ORDERED: SODIUM CHLORIDE IV ONE (10:30)
[2021-11-12] MEDS ORDERED: MULTIVITAMINS IV ONE (10:30)
[2021-11-12] MEDS ORDERED: ETOMIDATE 2 MG/ML 10 ML INJ IV ONE (12:56)
[2021-11-12] MEDS ORDERED: WATER STERILE 10 ML VIAL ONE (12:56)
[2021-11-12] MEDS ORDERED: VECURONIUM BROMIDE FOR INJ 20 MG VIAL ONE (12:56)
[2021-11-12] MEDS ORDERED: MIDAZOLAM HCL 2 MG/2 ML VIAL ONE (12:56)
[2021-11-12 13:48] LABS: ABG PCO2 35 mmHg (35-45); ABG PH 7.41 (7.35-7.45); ABG PO2 76 mmHg (80-105)
[2021-11-12 13:49] LABS: ABG HCO3 22 mmol/L (22-26); ABG TCO2 23
[2021-11-12] MEDS: ENOXAPARIN 30 MG/0.3 ML SYR SC SCH (16:46)
[2021-11-12] MEDS: TAMSULOSIN HCL 0.4 MG CAP PO SCH (21:00)
[2021-11-13] VITALS (25 sets, daily range): BP systolic 83–183; BP diastolic 53–86
[2021-11-13] MEDS: ALBUTEROL SULFATE HFA 8GM INHALATION AEROSOL INH SCH ×8 (02:00→22:20)
[2021-11-13] MEDS: DEXMEDETOMIDINE 400MCG/NS100ML 100 ML IV PRN (04:04)
[2021-11-13 05:05] LABS: BASOPHILS % 0.2 % (0.0-1.0); HEMATOCRIT 35.5 % (38.2-49.6); HEMOGLOBIN 11.8 g/dL (14.0-18.0); LYMPHOCYTES # (AUTO) 0.1 (1.0-3.2); LYMPHOCYTES % 1.1 % (18.0-39.1); MEAN CORPUSCULAR HEMOGLOBIN 29.7 pg (28-32); MEAN CORPUSCULAR HGB CONC 33.2 g/dL (31-35); MEAN CORPUSCULAR VOLUME 89.4 fL (81-99); MONOCYTES # (AUTO) 0.4 (0.2-0.8); NEUTROPHILS # (AUTO) 11.6 (2.1-6.9); NEUTROPHILS % 94.7 % (38.7-80.0); PLATELET COUNT 139 x10e3/uL (140-360); RED BLOOD COUNT 3.97 x10e6/uL (4.3-5.7); RED CELL DISTRIBUTION WIDTH 12.7 % (11.7-14.4)
[2021-11-13 05:27] LABS: ALBUMIN 1.9 g/dL (3.5-5.0); ALBUMIN/GLOBULIN RATIO 0.5 (0.8-2.0); CREATININE, SERUM 6.71 mg/dL (0.72-1.25); POTASSIUM 4.9 mmol/L (3.5-5.1)
[2021-11-13 05:48] LABS: ANION GAP 22.9 mmol/L (8-16)
[2021-11-13] MEDS: INSULIN LISPRO 100 UNIT/1 ML 3ML VIAL SQ SCH ×4 (07:30→22:20)
[2021-11-13] MEDS: FAMOTIDINE 20 MG TAB PO SCH (09:00)
[2021-11-13] MEDS: CYCLOSPORINE 25 MG CAP PO SCH ×3 (09:00→18:37)
[2021-11-13] MEDS: SODIUM BICARBONATE 650 MG TAB PO SCH ×2 (09:00→18:38)
[2021-11-13] MEDS: FINASTERIDE 5 MG TAB PO SCH (09:00)
[2021-11-13] MEDS: ATOVAQUONE 750 MG/5 ML SUSP PO SCH (09:00)
[2021-11-13] MEDS: NIFEDIPINE CR 30 MG TAB PO SCH ×2 (09:00→17:00)
[2021-11-13] MEDS: CLONIDINE HCL 0.3 MG TAB PO SCH ×3 (09:00→19:23)
[2021-11-13] MEDS: SIMVASTATIN 20 MG TAB PO SCH (09:00)
[2021-11-13] MEDS: NON-FORMULARY MEDICATION (Mycophenolate Sodium (Mycophenolic Acid) 180 MG) PO SCH ×2 (09:00→17:00)
[2021-11-13] MEDS ORDERED: ROCURONIUM BROMIDE 1 ML IV ONE (09:10)
[2021-11-13] MEDS ORDERED: MIDAZOLAM HCL 2 MG/2 ML VIAL ONE (09:14)
[2021-11-13] MEDS ORDERED: ROCURONIUM 1250MG/NS 250 250 ML IV PRN (09:15)
[2021-11-13] MEDS: FENTANYL 2000MCG/NS 250 250 ML IV SCH ×2 (09:30→19:18)
[2021-11-13] MEDS: MIDAZOLAM HCL 5MG/ML 10ML VIAL 100 ML IV PRN ×2 (09:30→19:19)
[2021-11-13] MEDS ORDERED: ACETAMINOPHEN 1000 MG/100 ML IV PRN (10:15)
[2021-11-13] MEDS: DEXAMETHASONE SOD PHOS 10 MG/1 ML VIAL IV SCH (11:00)
[2021-11-13] MEDS: THIAMINE HCL INJ 100 MG/ML 2ML VIAL IV SCH (11:01)
[2021-11-13] MEDS ORDERED: ALBUMIN 25% 25GM 100ML 0.25 GM/ML BTL IV PRN (11:45)
[2021-11-13] MEDS ORDERED: ALBUMIN 25% 12.5GM 50ML 100 ML IV ONE (11:56)
[2021-11-13] MEDS ORDERED: SODIUM CHLORIDE 0.9% 1000ML 1,000 ML ONE (13:02)
[2021-11-13] MEDS: NOREPINEPHRINE 8 MG/D5W 250 ML 250 ML IV PRN ×3 (13:25→23:38)
[2021-11-13 17:58] LABS: ABG PCO2 63 mmHg (35-45); ABG PH 7.25 (7.35-7.45); ABG PO2 104 mmHg (80-105)
[2021-11-13 17:59] LABS: ABG HCO3 27 mmol/L (22-26); ABG TCO2 29
[2021-11-13] MEDS: FAMOTIDINE 20 MG/2 ML VIAL IV SCH (18:37)
[2021-11-13] MEDS: ENOXAPARIN 30 MG/0.3 ML SYR SC SCH (18:38)
[2021-11-13] MEDS: TAMSULOSIN HCL 0.4 MG CAP PO SCH (19:23)
[2021-11-13] MEDS ORDERED: ALBUMIN 25% 25GM 100ML 0.25 GM/ML BTL IV ONE (23:00)
[2021-11-14] VITALS (25 sets, daily range): BP systolic 88–135; BP diastolic 54–69
[2021-11-14] MEDS: MIDAZOLAM HCL 5MG/ML 10ML VIAL 100 ML IV PRN ×2 (05:05→10:23)
[2021-11-14] MEDS: NOREPINEPHRINE 8 MG/D5W 250 ML 250 ML IV PRN ×2 (05:06→22:45)
[2021-11-14 05:21] LABS: BASOPHILS % 0.1 % (0.0-1.0); HEMATOCRIT 31.3 % (38.2-49.6); LYMPHOCYTES # (AUTO) 0.2 (1.0-3.2); LYMPHOCYTES % 1.1 % (18.0-39.1); MEAN CORPUSCULAR HGB CONC 31.9 g/dL (31-35); MONOCYTES # (AUTO) 0.7 (0.2-0.8); MONOCYTES % 4.4 % (4.4-11.3); NEUTROPHILS % 93.5 % (38.7-80.0); PLATELET COUNT 99 x10e3/uL (140-360); RED BLOOD COUNT 3.33 x10e6/uL (4.3-5.7)
[2021-11-14 06:11] LABS: ALBUMIN 3.5 g/dL (3.5-5.0); ALBUMIN/GLOBULIN RATIO 1.3 (0.8-2.0); ANION GAP 24.5 mmol/L (8-16); CALCIUM 8.9 mg/dL (8.4-10.2); CREATININE, SERUM 4.94 mg/dL (0.72-1.25); POTASSIUM 5.5 mmol/L (3.5-5.1)
[2021-11-14] MEDS: INSULIN LISPRO 100 UNIT/1 ML 3ML VIAL SQ SCH ×3 (06:31→18:00)
[2021-11-14 08:32] LABS: ABG HCO3 25 mmol/L (22-26); ABG PCO2 52 mmHg (35-45); ABG PH 7.29 (7.35-7.45); ABG PO2 89 mmHg (80-105); ABG TCO2 27
[2021-11-14] MEDS: NIFEDIPINE CR 30 MG TAB PO SCH (09:00)
[2021-11-14] MEDS: NON-FORMULARY MEDICATION (Mycophenolate Sodium (Mycophenolic Acid) 180 MG) PO SCH ×2 (09:00→18:49)
[2021-11-14] MEDS: CYCLOSPORINE 25 MG CAP PO SCH ×2 (09:00→09:19)
[2021-11-14] MEDS: CLONIDINE HCL 0.3 MG TAB PO SCH (09:00)
[2021-11-14] MEDS: THIAMINE HCL INJ 100 MG/ML 2ML VIAL IV SCH (09:18)
[2021-11-14] MEDS: DEXAMETHASONE SOD PHOS 10 MG/1 ML VIAL IV SCH (09:18)
[2021-11-14] MEDS: FAMOTIDINE 20 MG/2 ML VIAL IV SCH ×3 (09:18→19:34)
[2021-11-14] MEDS: ATOVAQUONE 750 MG/5 ML SUSP PO SCH (09:23)
[2021-11-14] MEDS: FINASTERIDE 5 MG TAB PO SCH (09:24)
[2021-11-14] MEDS: SODIUM BICARBONATE 650 MG TAB PO SCH (09:24)
[2021-11-14] MEDS: FENTANYL 2000MCG/NS 250 250 ML IV SCH (10:23)
[2021-11-14] MEDS ORDERED: SODIUM CHLORIDE 0.9% 250ML 500 ML IV PRN (11:15)
[2021-11-14] MEDS ORDERED: SODIUM CHLORIDE 0.9% 1000ML 2,000 ML IV PRN (11:15)
[2021-11-14] MEDS ORDERED: HEPARIN SOD (PORCINE) 1000 UNIT/ML SDV IV PRN (11:15)
[2021-11-14] MEDS ORDERED: ALBUMIN 25% 12.5GM 0.25 GM/ML BTL IV PRN (11:15)
[2021-11-14 16:13] LABS: ABG HCO3 26 mmol/L (22-26); ABG PCO2 46 mmHg (35-45); ABG PH 7.36 (7.35-7.45); ABG PO2 162 mmHg (80-105); ABG TCO2 27
[2021-11-14] MEDS: ENOXAPARIN 30 MG/0.3 ML SYR SC SCH (18:49)
[2021-11-15] VITALS (24 sets, daily range): BP systolic 91–109; BP diastolic 50–59
[2021-11-15] MEDS: FENTANYL 2000MCG/NS 250 250 ML IV SCH ×3 (00:10→23:45)
[2021-11-15] MEDS: MIDAZOLAM HCL 5MG/ML 10ML VIAL 100 ML IV PRN ×3 (00:10→23:45)
[2021-11-15] MEDS: INSULIN LISPRO 100 UNIT/1 ML 3ML VIAL SQ SCH ×2 (00:45→05:40)
[2021-11-15 05:06] LABS: BASOPHILS % 0.1 % (0.0-1.0); HEMATOCRIT 33.1 % (38.2-49.6); HEMOGLOBIN 10.5 g/dL (14.0-18.0); LYMPHOCYTES # (AUTO) 0.1 (1.0-3.2); LYMPHOCYTES % 0.9 % (18.0-39.1); MEAN CORPUSCULAR HEMOGLOBIN 29.8 pg (28-32); MEAN CORPUSCULAR HGB CONC 31.7 g/dL (31-35); MONOCYTES # (AUTO) 0.4 (0.2-0.8); MONOCYTES % 2.8 % (4.4-11.3); NEUTROPHILS # (AUTO) 11.8 (2.1-6.9); NEUTROPHILS % 95.8 % (38.7-80.0); PLATELET COUNT 65 x10e3/uL (140-360); RED BLOOD COUNT 3.52 x10e6/uL (4.3-5.7); RED CELL DISTRIBUTION WIDTH 13.2 % (11.7-14.4)
[2021-11-15 05:19] LABS: ALBUMIN 2.8 g/dL (3.5-5.0); ALBUMIN/GLOBULIN RATIO 0.9 (0.8-2.0); CREATININE, SERUM 4.49 mg/dL (0.72-1.25)
[2021-11-15] MEDS: NOREPINEPHRINE 8 MG/D5W 250 ML 250 ML IV PRN (09:00)
[2021-11-15] MEDS ORDERED: CYCLOSPORINE 250 MG/5 ML AMP IV SCH (09:00)
[2021-11-15] MEDS: NON-FORMULARY MEDICATION (Mycophenolate Sodium (Mycophenolic Acid) 180 MG) PO SCH ×2 (09:12→17:17)
[2021-11-15] MEDS: THIAMINE HCL INJ 100 MG/ML 2ML VIAL IV SCH (09:12)
[2021-11-15] MEDS: DEXAMETHASONE SOD PHOS 10 MG/1 ML VIAL IV SCH (09:12)
[2021-11-15 09:13] LABS: ABG PH 7.26 (7.35-7.45)
[2021-11-15] MEDS: FAMOTIDINE 20 MG/2 ML VIAL IV SCH (09:13)
[2021-11-15 09:14] LABS: ABG HCO3 23 mmol/L (22-26); ABG PCO2 51 mmHg (35-45); ABG PO2 111 mmHg (80-105); ABG TCO2 24
[2021-11-15] MEDS ORDERED: DEXTROSE 50% SYRINGE 50 ML IV PRN (13:15)
[2021-11-15] MEDS: INSULIN REGULAR, HUMAN 3ML VL 100 UNIT in SODIUM CHLORIDE 0.9% 99 ML IV PRN ×2 (14:01)
[2021-11-16] VITALS (24 sets, daily range): BP systolic 89–115; BP diastolic 49–63
[2021-11-16] MEDS ORDERED: INSULIN REGULAR IN 0.9 % NACL 100 ML IV ONE (04:24)
[2021-11-16 05:25] LABS: BASOPHILS % 0.1 % (0.0-1.0); HEMOGLOBIN 10.6 g/dL (14.0-18.0); LYMPHOCYTES # (AUTO) 0.1 (1.0-3.2); LYMPHOCYTES % 0.7 % (18.0-39.1); MEAN CORPUSCULAR HEMOGLOBIN 29.4 pg (28-32); MEAN CORPUSCULAR HGB CONC 31.2 g/dL (31-35); MEAN CORPUSCULAR VOLUME 94.4 fL (81-99); MONOCYTES # (AUTO) 0.5 (0.2-0.8); NEUTROPHILS # (AUTO) 12.7 (2.1-6.9); PLATELET COUNT 64 x10e3/uL (140-360); RED CELL DISTRIBUTION WIDTH 13.2 % (11.7-14.4)
[2021-11-16 05:57] LABS: ALBUMIN 2.5 g/dL (3.5-5.0); ALBUMIN/GLOBULIN RATIO 0.9 (0.8-2.0); ANION GAP 20.6 mmol/L (8-16); CALCIUM 8.5 mg/dL (8.4-10.2); CREATININE, SERUM 6.36 mg/dL (0.72-1.25); POTASSIUM 5.6 mmol/L (3.5-5.1)
[2021-11-16 06:54] LABS: ABG HCO3 20 mmol/L (22-26); ABG PCO2 45 mmHg (35-45); ABG PH 7.26 (7.35-7.45); ABG PO2 89 mmHg (80-105); ABG TCO2 22
[2021-11-16] MEDS: NON-FORMULARY MEDICATION (Mycophenolate Sodium (Mycophenolic Acid) 180 MG) PO SCH ×2 (08:11→16:47)
[2021-11-16] MEDS: THIAMINE HCL INJ 100 MG/ML 2ML VIAL IV SCH (08:11)
[2021-11-16] MEDS: MIDAZOLAM HCL 5MG/ML 10ML VIAL 100 ML IV PRN ×2 (10:10→21:10)
[2021-11-16 11:12] LABS: ABG PCO2 42 mmHg (35-45); ABG PH 7.31 (7.35-7.45)
[2021-11-16 11:13] LABS: ABG HCO3 21 mmol/L (22-26); ABG PO2 76 mmHg (80-105); ABG TCO2 22
[2021-11-16] MEDS ORDERED: HEPARIN SOD (PORCINE) 1000 UNIT/ML SDV ONE (12:32)
[2021-11-16] MEDS: MICAFUNGIN SODIUM 100 ML IV SCH (12:36)
[2021-11-16] MEDS ORDERED: ALBUMIN 25% 12.5GM 50ML 50 ML IV ONE (13:25)
[2021-11-16] MEDS: ASCORBIC ACID 500 MG TAB PO SCH (16:47)
[2021-11-16] MEDS ORDERED: CYCLOSPORINE MODIFIED NG SCH (17:00)
[2021-11-16] MEDS ORDERED: ENOXAPARIN 30 MG/0.3 ML SYR SC SCH (17:00)
[2021-11-16] MEDS ORDERED: ACETAMINOPHEN 1000 MG/100 ML IV PRN (20:30)
[2021-11-16] MEDS: INSULIN REGULAR, HUMAN 3ML VL 100 UNIT in SODIUM CHLORIDE 0.9% 99 ML IV PRN ×2 (20:32)
[2021-11-16] MEDS: ACETAMINOPHEN 1000 MG/100 ML IV PRN (20:35)
[2021-11-16] MEDS ORDERED: ACETAMINOPHEN 1000 MG/100 ML 100 ML IV ONE (20:44)
[2021-11-16] MEDS: NOREPINEPHRINE 8 MG/D5W 250 ML 250 ML IV PRN (23:50)
[2021-11-17] VITALS (24 sets, daily range): BP systolic 87–112; BP diastolic 54–68
[2021-11-17] MEDS: NOREPINEPHRINE 8 MG/D5W 250 ML 250 ML IV PRN ×2 (01:26→06:05)
[2021-11-17] MEDS: INSULIN REGULAR, HUMAN 3ML VL 100 UNIT in SODIUM CHLORIDE 0.9% 99 ML IV PRN ×4 (04:15→08:54)
[2021-11-17] MEDS: ACETAMINOPHEN 1000 MG/100 ML IV PRN ×2 (04:59→18:26)
[2021-11-17 05:02] LABS: BASOPHILS % 0.3 % (0.0-1.0); EOSINOPHILS % 0.1 % (0.0-6.0); HEMATOCRIT 32.8 % (38.2-49.6); HEMOGLOBIN 10.7 g/dL (14.0-18.0); LYMPHOCYTES # (AUTO) 0.2 (1.0-3.2); LYMPHOCYTES % 2.5 % (18.0-39.1); MEAN CORPUSCULAR HEMOGLOBIN 30.1 pg (28-32); MEAN CORPUSCULAR HGB CONC 32.6 g/dL (31-35); MEAN CORPUSCULAR VOLUME 92.1 fL (81-99); MONOCYTES # (AUTO) 0.2 (0.2-0.8); MONOCYTES % 2.2 % (4.4-11.3); NEUTROPHILS # (AUTO) 8.3 (2.1-6.9); NEUTROPHILS % 92.8 % (38.7-80.0); RED BLOOD COUNT 3.56 x10e6/uL (4.3-5.7); RED CELL DISTRIBUTION WIDTH 13.1 % (11.7-14.4)
[2021-11-17 05:09] LABS: PLATELET COUNT 39 x10e3/uL (140-360)
[2021-11-17 05:39] LABS: ALBUMIN 2.6 g/dL (3.5-5.0); ANION GAP 19.5 mmol/L (8-16); CALCIUM 7.8 mg/dL (8.4-10.2); CREATININE, SERUM 4.12 mg/dL (0.72-1.25); POTASSIUM 4.5 mmol/L (3.5-5.1)
[2021-11-17] MEDS: MIDAZOLAM HCL 5MG/ML 10ML VIAL 100 ML IV PRN ×2 (07:31→17:28)
[2021-11-17] MEDS: FENTANYL 2000MCG/NS 250 250 ML IV SCH ×2 (07:33→21:34)
[2021-11-17] MEDS: THIAMINE HCL INJ 100 MG/ML 2ML VIAL IV SCH (08:02)
[2021-11-17] MEDS: ASCORBIC ACID 500 MG TAB PO SCH ×2 (08:02→17:04)
[2021-11-17] MEDS: ZINC SULFATE 50 MG CAP PO SCH (08:02)
[2021-11-17] MEDS: NON-FORMULARY MEDICATION (Mycophenolate Sodium (Mycophenolic Acid) 180 MG) PO SCH (08:02)
[2021-11-17 08:55] LABS: ABG HCO3 25 mmol/L (22-26); ABG PCO2 52 mmHg (35-45); ABG PO2 63 mmHg (80-105); ABG TCO2 27
[2021-11-17 09:44] LABS: INR 1.18; PROTHROMBIN TIME 15.8 seconds (11.9-14.5)
[2021-11-17] MEDS: MICAFUNGIN SODIUM 100 ML IV SCH (11:03)
[2021-11-17] MEDS: FLUCONAZOLE 200 MG/100 ML 100 ML IV SCH (14:30)
[2021-11-17 15:59] LABS: ABG HCO3 27 mmol/L (22-26); ABG PCO2 49 mmHg (35-45); ABG PH 7.35 (7.35-7.45); ABG PO2 101 mmHg (80-105); ABG TCO2 28
[2021-11-17] MEDS: CYCLOSPORINE MODIFIED NG SCH (17:04)
[2021-11-17] MEDS ORDERED: ACETAMINOPHEN 325 MG TAB ONE (17:28)
[2021-11-18] VITALS (26 sets, daily range): BP systolic 81–111; BP diastolic 48–70
[2021-11-18 05:07] LABS: BASOPHILS % 0.1 % (0.0-1.0); EOSINOPHILS # (AUTO) 0.1 (0.0-0.4); HEMATOCRIT 29.3 % (38.2-49.6); HEMOGLOBIN 9.2 g/dL (14.0-18.0); LYMPHOCYTES # (AUTO) 0.3 (1.0-3.2); LYMPHOCYTES % 2.7 % (18.0-39.1); MEAN CORPUSCULAR HEMOGLOBIN 29.9 pg (28-32); MEAN CORPUSCULAR HGB CONC 31.4 g/dL (31-35); MEAN CORPUSCULAR VOLUME 95.1 fL (81-99); MONOCYTES # (AUTO) 0.3 (0.2-0.8); MONOCYTES % 2.4 % (4.4-11.3); NEUTROPHILS # (AUTO) 9.8 (2.1-6.9); NEUTROPHILS % 90.4 % (38.7-80.0); RED BLOOD COUNT 3.08 x10e6/uL (4.3-5.7); RED CELL DISTRIBUTION WIDTH 13.8 % (11.7-14.4)
[2021-11-18] MEDS: MIDAZOLAM HCL 5MG/ML 10ML VIAL 100 ML IV PRN ×2 (05:13→16:33)
[2021-11-18 05:34] LABS: PLATELET COUNT 34 x10e3/uL (140-360)
[2021-11-18 06:04] LABS: ALBUMIN/GLOBULIN RATIO 0.7 (0.8-2.0); ANION GAP 18.7 mmol/L (8-16); CALCIUM 8.8 mg/dL (8.4-10.2); CREATININE, SERUM 5.5 mg/dL (0.72-1.25); POTASSIUM 4.7 mmol/L (3.5-5.1)
[2021-11-18] MEDS: CYCLOSPORINE MODIFIED NG SCH ×2 (08:54→16:20)
[2021-11-18] MEDS: ZINC SULFATE 50 MG CAP PO SCH (08:54)
[2021-11-18] MEDS: ASCORBIC ACID 500 MG TAB PO SCH ×2 (08:54→16:20)
[2021-11-18] MEDS: THIAMINE HCL INJ 100 MG/ML 2ML VIAL IV SCH (08:54)
[2021-11-18] MEDS: FONDAPARINUX SODIUM 2.5 MG/0.5 ML SYR SQ SCH (09:18)
[2021-11-18 09:57] LABS: ABG HCO3 27 mmol/L (22-26); ABG PCO2 55 mmHg (35-45); ABG PO2 89 mmHg (80-105)
[2021-11-18 09:58] LABS: ABG TCO2 29
[2021-11-18] MEDS ORDERED: HEPARIN SOD (PORCINE) 1000 UNIT/ML SDV ONE (10:34)
[2021-11-18 11:16] LABS: BAND NEUTROPHILS % (MANUAL) 2 %; LYMPHOCYTES % (MANUAL) 2 % (19-48); MONOCYTES % (MANUAL) 2 % (3.4-9.0); NEUTROPHILS % (MANUAL) 94 % (40-74)
[2021-11-18] MEDS: FENTANYL 2000MCG/NS 250 250 ML IV SCH (11:20)
[2021-11-18] MEDS: ACETAMINOPHEN 325 MG TAB PO PRN ×3 (11:21→20:21)
[2021-11-18] MEDS: NOREPINEPHRINE 8 MG/D5W 250 ML 250 ML IV PRN ×4 (11:30→22:21)
[2021-11-18] MEDS: FLUCONAZOLE 200 MG/100 ML 100 ML IV SCH (14:54)
[2021-11-18] MEDS: INSULIN REGULAR, HUMAN 3ML VL 100 UNIT in SODIUM CHLORIDE 0.9% 99 ML IV PRN ×4 (18:02→20:26)
[2021-11-19] VITALS (25 sets, daily range): BP systolic 84–113; BP diastolic 51–66
[2021-11-19] MEDS: INSULIN REGULAR, HUMAN 3ML VL 100 UNIT in SODIUM CHLORIDE 0.9% 99 ML IV PRN ×2 (00:31)
[2021-11-19] MEDS: NOREPINEPHRINE 8 MG/D5W 250 ML 250 ML IV PRN ×4 (00:32→18:23)
[2021-11-19] MEDS: FENTANYL 2000MCG/NS 250 250 ML IV SCH ×2 (00:45→15:21)
[2021-11-19] MEDS: MIDAZOLAM HCL 5MG/ML 10ML VIAL 100 ML IV PRN ×3 (00:46→21:31)
[2021-11-19 05:13] LABS: BASOPHILS % 0.3 % (0.0-1.0); EOSINOPHILS # (AUTO) 0.1 (0.0-0.4); EOSINOPHILS % 1.3 % (0.0-6.0); HEMOGLOBIN 8.7 g/dL (14.0-18.0); LYMPHOCYTES # (AUTO) 0.4 (1.0-3.2); LYMPHOCYTES % 4.4 % (18.0-39.1); MEAN CORPUSCULAR HEMOGLOBIN 29.9 pg (28-32); MEAN CORPUSCULAR HGB CONC 31.1 g/dL (31-35); MEAN CORPUSCULAR VOLUME 96.2 fL (81-99); MONOCYTES # (AUTO) 0.4 (0.2-0.8); MONOCYTES % 3.5 % (4.4-11.3); NEUTROPHILS # (AUTO) 8.4 (2.1-6.9); NEUTROPHILS % 84.9 % (38.7-80.0); RED BLOOD COUNT 2.91 x10e6/uL (4.3-5.7); RED CELL DISTRIBUTION WIDTH 14.1 % (11.7-14.4)
[2021-11-19 05:32] LABS: ALBUMIN/GLOBULIN RATIO 0.7 (0.8-2.0); ANION GAP 17.7 mmol/L (8-16); CALCIUM 8.6 mg/dL (8.4-10.2); CREATININE, SERUM 3.85 mg/dL (0.72-1.25); POTASSIUM 4.7 mmol/L (3.5-5.1)
[2021-11-19 05:33] LABS: PLATELET COUNT 46 x10e3/uL (140-360)
[2021-11-19 08:24] LABS: ABG PH 7.21 (7.35-7.45)
[2021-11-19 08:25] LABS: ABG PCO2 69 mmHg (35-45); ABG PO2 66 mmHg (80-105)
[2021-11-19 08:26] LABS: ABG HCO3 27 mmol/L (22-26); ABG TCO2 29
[2021-11-19] MEDS: FONDAPARINUX SODIUM 2.5 MG/0.5 ML SYR SQ SCH (09:21)
[2021-11-19] MEDS: ZINC SULFATE 50 MG CAP PO SCH (09:21)
[2021-11-19] MEDS: ASCORBIC ACID 500 MG TAB PO SCH ×2 (09:21→17:07)
[2021-11-19] MEDS: THIAMINE HCL INJ 100 MG/ML 2ML VIAL IV SCH (09:21)
[2021-11-19] MEDS: CYCLOSPORINE MODIFIED NG SCH ×2 (09:21→17:07)
[2021-11-19] MEDS ORDERED: ACETAMINOPHEN 1000 MG/100 ML IV ONE (12:00)
[2021-11-19 12:50] LABS: BAND NEUTROPHILS % (MANUAL) 1 %; EOSINOPHILS % (MANUAL) 1 % (0-7); LYMPHOCYTES % (MANUAL) 8 % (19-48); MONOCYTES % (MANUAL) 3 % (3.4-9.0); NEUTROPHILS % (MANUAL) 87 % (40-74); NUCLEATED RED BLOOD CELLS 1; PLATELET ESTIMATE MODERATELY DECREASED; PLATELET MORPHOLOGY COMMENT NORMAL; RBC MORPHOLOGY COMMENT NORMAL
[2021-11-19 14:16] LABS: ABG PCO2 58 mmHg (35-45); ABG PH 7.25 (7.35-7.45); ABG PO2 48 mmHg (80-105)
[2021-11-19 14:17] LABS: ABG HCO3 25 mmol/L (22-26); ABG TCO2 27
[2021-11-19] MEDS: FLUCONAZOLE 200 MG/100 ML 100 ML IV SCH (15:21)
[2021-11-19] MEDS: CEFEPIME 1 GM in SODIUM CHLORIDE 0.9% 50ML 50 ML IV SCH (16:28)
[2021-11-19] MEDS: ACETAMINOPHEN 325 MG TAB PO PRN (23:56)
[2021-11-20] VITALS (24 sets, daily range): BP systolic 80–113; BP diastolic 50–65
[2021-11-20] MEDS: NOREPINEPHRINE 8 MG/D5W 250 ML 250 ML IV PRN ×5 (00:02→23:21)
[2021-11-20] MEDS: FENTANYL 2000MCG/NS 250 250 ML IV SCH ×2 (03:14→15:59)
[2021-11-20] MEDS ORDERED: MAGNESIUM HYDROXIDE 30 ML UDC PO ONE (03:30)
[2021-11-20 05:03] LABS: BASOPHILS % 0.2 % (0.0-1.0); EOSINOPHILS # (AUTO) 0.1 (0.0-0.4); HEMATOCRIT 26.8 % (38.2-49.6); HEMOGLOBIN 8.3 g/dL (14.0-18.0); LYMPHOCYTES # (AUTO) 0.6 (1.0-3.2); LYMPHOCYTES % 4.9 % (18.0-39.1); MEAN CORPUSCULAR HEMOGLOBIN 29.7 pg (28-32); MEAN CORPUSCULAR VOLUME 96.1 fL (81-99); MONOCYTES # (AUTO) 0.5 (0.2-0.8); MONOCYTES % 4.2 % (4.4-11.3); NEUTROPHILS # (AUTO) 9.8 (2.1-6.9); NEUTROPHILS % 85.6 % (38.7-80.0); RED BLOOD COUNT 2.79 x10e6/uL (4.3-5.7); RED CELL DISTRIBUTION WIDTH 14.2 % (11.7-14.4)
[2021-11-20] MEDS: INSULIN REGULAR, HUMAN 3ML VL 100 UNIT in SODIUM CHLORIDE 0.9% 99 ML IV PRN ×4 (05:09→21:22)
[2021-11-20 05:40] LABS: PLATELET COUNT 40 x10e3/uL (140-360)
[2021-11-20 05:50] LABS: ALBUMIN 1.7 g/dL (3.5-5.0); ALBUMIN/GLOBULIN RATIO 0.5 (0.8-2.0); ANION GAP 18.1 mmol/L (8-16); CALCIUM 8.6 mg/dL (8.4-10.2); CREATININE, SERUM 5.11 mg/dL (0.72-1.25); POTASSIUM 5.1 mmol/L (3.5-5.1)
[2021-11-20] MEDS ORDERED: HEPARIN SOD (PORCINE) 1000 UNIT/ML SDV ONE (06:25)
[2021-11-20] MEDS: CYCLOSPORINE MODIFIED NG SCH ×2 (08:05→15:57)
[2021-11-20] MEDS: THIAMINE HCL INJ 100 MG/ML 2ML VIAL IV SCH (08:05)
[2021-11-20] MEDS: ZINC SULFATE 50 MG CAP PO SCH (08:05)
[2021-11-20] MEDS: ASCORBIC ACID 500 MG TAB PO SCH ×2 (08:05→15:57)
[2021-11-20] MEDS: FONDAPARINUX SODIUM 2.5 MG/0.5 ML SYR SQ SCH (08:05)
[2021-11-20] MEDS: MIDAZOLAM HCL 5MG/ML 10ML VIAL 100 ML IV PRN ×2 (08:06→15:58)
[2021-11-20] MEDS ORDERED: HEPARIN SOD (PORCINE) 1000 UNIT/ML SDV IV PRN (08:15)
[2021-11-20 09:28] LABS: BAND NEUTROPHILS % (MANUAL) 1 %; EOSINOPHILS % (MANUAL) 2 % (0-7); LYMPHOCYTES % (MANUAL) 13 % (19-48); MONOCYTES % (MANUAL) 1 % (3.4-9.0); NEUTROPHILS % (MANUAL) 83 % (40-74)
[2021-11-20 09:29] LABS: PLATELET ESTIMATE MODERATELY DECREASED; PLATELET MORPHOLOGY COMMENT NORMAL; RBC MORPHOLOGY COMMENT NORMAL
[2021-11-20 09:45] LABS: ABG HCO3 24 mmol/L (22-26); ABG PCO2 54 mmHg (35-45); ABG PH 7.25 (7.35-7.45); ABG PO2 66 mmHg (80-105); ABG TCO2 25
[2021-11-20] MEDS: ACETAMINOPHEN 325 MG TAB PO PRN ×2 (14:46→23:27)
[2021-11-20] MEDS: FLUCONAZOLE 200 MG/100 ML 100 ML IV SCH (14:46)
[2021-11-20] MEDS: CEFEPIME 1 GM in SODIUM CHLORIDE 0.9% 50ML 50 ML IV SCH (15:43)
[2021-11-21] VITALS (15 sets, daily range): BP systolic 34–99; BP diastolic 30–56
[2021-11-21] MEDS: NOREPINEPHRINE 8 MG/D5W 250 ML 250 ML IV PRN ×3 (00:45→07:50)
[2021-11-21] MEDS ORDERED: ALBUMIN 25% 25GM 100ML 0.25 GM/ML BTL IV ONE (01:00)
[2021-11-21] MEDS ORDERED: VASOPRESSIN 60 UNIT in DEXTROSE 5% 50ML 57 ML IV PRN (01:00)
[2021-11-21] MEDS ORDERED: VASOPRESSIN INJ 20 UNIT/ML VIAL ONE ×2 (01:10→01:15)
[2021-11-21] MEDS ORDERED: SODIUM CHLORIDE 0.9% 50ML 50 ML ONE (01:11)
[2021-11-21] MEDS ORDERED: DEXTROSE 5% 100ML 100 ML IV ONE (01:15)
[2021-11-21] MEDS: INSULIN REGULAR, HUMAN 3ML VL 100 UNIT in SODIUM CHLORIDE 0.9% 99 ML IV PRN ×2 (01:54)
[2021-11-21] MEDS: MIDAZOLAM HCL 5MG/ML 10ML VIAL 100 ML IV PRN ×2 (04:10→12:34)
[2021-11-21 06:05] LABS: BASOPHILS % 0.1 % (0.0-1.0); EOSINOPHILS % 0.3 % (0.0-6.0); HEMATOCRIT 23.9 % (38.2-49.6); HEMOGLOBIN 7.2 g/dL (14.0-18.0); LYMPHOCYTES # (AUTO) 0.2 (1.0-3.2); LYMPHOCYTES % 3.1 % (18.0-39.1); MEAN CORPUSCULAR HEMOGLOBIN 29.8 pg (28-32); MEAN CORPUSCULAR HGB CONC 30.1 g/dL (31-35); MEAN CORPUSCULAR VOLUME 98.8 fL (81-99); MONOCYTES # (AUTO) 0.1 (0.2-0.8); MONOCYTES % 1.5 % (4.4-11.3); NEUTROPHILS # (AUTO) 6.2 (2.1-6.9); NEUTROPHILS % 92.6 % (38.7-80.0); RED BLOOD COUNT 2.42 x10e6/uL (4.3-5.7); RED CELL DISTRIBUTION WIDTH 14.8 % (11.7-14.4)
[2021-11-21 06:16] LABS: ALBUMIN 2.1 g/dL (3.5-5.0); ALBUMIN/GLOBULIN RATIO 0.8 (0.8-2.0); ANION GAP 18.3 mmol/L (8-16); CALCIUM 8.4 mg/dL (8.4-10.2); CREATININE, SERUM 3.53 mg/dL (0.72-1.25); POTASSIUM 4.3 mmol/L (3.5-5.1)
[2021-11-21 06:27] LABS: PLATELET COUNT 21 x10e3/uL (140-360)
[2021-11-21] MEDS: PHENYLEPHRINE 10MG/ML VIAL 40 MG in DEXTROSE 5% 250ML 246 ML IV SCH ×2 (07:30→12:33)
[2021-11-21] MEDS: FENTANYL 2000MCG/NS 250 250 ML IV SCH (07:48)
[2021-11-21] MEDS ORDERED: SODIUM BICARBONATE 8.4% INJ 50 ML SYR IV STA (08:24)
[2021-11-21 08:28] LABS: ABG HCO3 23 mmol/L (22-26); ABG PCO2 62 mmHg (35-45); ABG PH 7.17 (7.35-7.45); ABG PO2 50 mmHg (80-105); ABG TCO2 24
[2021-11-21] MEDS ORDERED: SODIUM BICARBONATE 8.4% SYRING 50 ML ONE (08:34)
[2021-11-21] MEDS: ACETAMINOPHEN 325 MG TAB PO PRN (08:36)
[2021-11-21] MEDS ORDERED: ACETAMINOPHEN 325 MG TAB PO STA (08:40)
[2021-11-21] MEDS ORDERED: SODIUM CHLORIDE 0.9% 250ML 250 ML IV ONE (08:45)
[2021-11-21] MEDS ORDERED: LINEZOLID 600 MG/D5W 300ML 300 ML IV SCH (09:00)
[2021-11-21] MEDS ORDERED: MEROPENEM 500 MG in SODIUM CHLORIDE 0.9% 50ML 50 ML IV SCH (09:00)
[2021-11-21 09:42] LABS: BAND NEUTROPHILS % (MANUAL) 15 %; LYMPHOCYTES % (MANUAL) 3 % (19-48); MONOCYTES % (MANUAL) 1 % (3.4-9.0); MYELOCYTES % (MANUAL) 1 % (0-0); NEUTROPHILS % (MANUAL) 80 % (40-74); NUCLEATED RED BLOOD CELLS 2
[2021-11-21 09:43] LABS: PLATELET ESTIMATE MARKEDLY DECREASED; PLATELET MORPHOLOGY COMMENT NORMAL; RBC MORPHOLOGY COMMENT NORMAL
[2021-11-21] MEDS: THIAMINE HCL INJ 100 MG/ML 2ML VIAL IV SCH (09:46)
[2021-11-21] MEDS: CYCLOSPORINE MODIFIED NG SCH ×2 (09:47→16:11)
[2021-11-21] MEDS: ZINC SULFATE 50 MG CAP PO SCH (09:47)
[2021-11-21] MEDS: ASCORBIC ACID 500 MG TAB PO SCH ×2 (09:47→16:12)
[2021-11-21 12:54] LABS: ABG HCO3 22 mmol/L (22-26); ABG PCO2 60 mmHg (35-45); ABG PH 7.17 (7.35-7.45); ABG PO2 47 mmHg (80-105); ABG TCO2 24
[2021-11-21 16:00] LABS: ABG HCO3 12 mmol/L (22-26); ABG PCO2 55 mmHg (35-45); ABG PH 6.93 (7.35-7.45); ABG PO2 69 mmHg (80-105); ABG TCO2 13
[2021-11-21] MEDS: FLUCONAZOLE 200 MG/100 ML 100 ML IV SCH (16:11)
== END 2021-11-22 13:44 | disposition expired | DRG 853 ==
LOC: ER 14:12 → ERHOLD 16:13 → IMCU 20:23 → ICU 11-07 10:45 → IMCU 11-21 21:49
PROVIDERS: ADMIT Internal Medicine; ATTEND Internal Medicine
PROC: 8E0ZXY6 Isolation (ICD-10-PCS; 2021-11-05)
PROC: 02HV33Z Insertion of Infusion Device into Superior Vena Cava, Percutaneous Approach (ICD-10-PCS; 2021-11-07)
PROC: 5A1D70Z Performance of Urinary Filtration, Intermittent, Less than 6 Hours Per Day (ICD-10-PCS; 2021-11-07)
PROC: 5A0935A Assistance with Respiratory Ventilation, Less than 24 Consecutive Hours, High Flow/Velocity Cannula (ICD-10-PCS; 2021-11-07)
PROC: 03H Upper Arteries, Insertion (ICD-10-PCS; principal; 2021-11-14)
PROC: 0BH18EZ Insertion of Endotracheal Airway into Trachea, Via Natural or Artificial Opening Endoscopic (ICD-10-PCS; 2021-11-14)
PROC: 5A1955Z Respiratory Ventilation, Greater than 96 Consecutive Hours (ICD-10-PCS; 2021-11-14)
DX: A41.89 Other specified sepsis (principal); U07.1 COVID-19; J12.82 Pneumonia due to coronavirus disease 2019; J96.01 Acute respiratory failure with hypoxia; N17.0 Acute kidney failure with tubular necrosis; N18.6 End stage renal disease; R65.21 Severe sepsis with septic shock; J18.9 Pneumonia, unspecified organism; J96.21 Acute and chronic respiratory failure with hypoxia; I50.33 Acute on chronic diastolic (congestive) heart failure; D65 Disseminated intravascular coagulation [defibrination syndrome]; I12.0 Hypertensive chronic kidney disease with stage 5 chronic kidney disease or end stage renal disease; D84.9 Immunodeficiency, unspecified; D68.9 Coagulation defect, unspecified; E87.2 Acidosis; I13.2 Hypertensive heart and chronic kidney disease with heart failure and with stage 5 chronic kidney disease, or end stage renal disease; T86.11 Kidney transplant rejection; D63.8 Anemia in other chronic diseases classified elsewhere; E11.9 Type 2 diabetes mellitus without complications; E11.22 Type 2 diabetes mellitus with diabetic chronic kidney disease; Z99.2 Dependence on renal dialysis; D50.0 Iron deficiency anemia secondary to blood loss (chronic); D69.59 Other secondary thrombocytopenia; R79.89 Other specified abnormal findings of blood chemistry; E87.5 Hyperkalemia; R91.1 Solitary pulmonary nodule
CPT/HCPCS: 31500; 36415; 36600; 71045; 71250; 74018; 76700; 80048; 80053; 80158; 81001; 82728; 82805; 82948; 83605; 85007; 85025; 85027; 85379; 85384; 85610; 85730; 86022; 86141; 86705; 86706; 86850; 86900; 86920; 87040; 87070; 87086; 87116; 87205; 87206; 87340; 90962; 93306; 93970; 94002; 94003; 94640; 94660; 94664; 94799; 96360; 99251; 99284; J0692; J0696; J1100; J1450; J1644; J1650; J1652; J1815; J1817; J2020; J2150; J2185; J2248; J2250; J2370; J2543; J3411; J7030; J7040; J7050; J7070; J7512; J7515; J7799; P9016; P9047; U0002